=== PATIENT | female | born 1955 | race Caucasian/White ===

== ENCOUNTER 2016-07-14 10:31 | Outpatient (CLI) | payer OTHER | END 2016-07-14 10:32 | disposition home or self-care (01) | DX: I82.402 Acute embolism and thrombosis of unspecified deep veins of left lower extremity (principal); I26.99 Other pulmonary embolism without acute cor pulmonale; D68.62 Lupus anticoagulant syndrome ==

== ENCOUNTER 2017-09-02 11:02 | Outpatient (CLI) | payer OTHER ==
[2017-09-02 17:33] LABS: INR 2.2 (0.8-1.2); PT - PROTHROMBIN TIME 24.4 secs (9.9-12.6)
== END 2017-09-02 11:03 | disposition home or self-care (01) ==
LOC: LAB.F 11:02
PROVIDERS: ATTEND Family Medicine
DX: I82.402 Acute embolism and thrombosis of unspecified deep veins of left lower extremity (principal); I26.99 Other pulmonary embolism without acute cor pulmonale; D68.62 Lupus anticoagulant syndrome
CPT/HCPCS: 36415; 85610